=== PATIENT | female | born 1995 | race Caucasian/White ===

== ENCOUNTER 2021-02-24 15:10 | Outpatient (CLI) | payer OTHER, SELFPAY ==
--- NOTE | ~2021-02-24 | US_ITS ---
EXAMINATION: US pelvic complete w TV DATE: 02/24/2021 15:45 INDICATION: Missing IUD strings Comparison:No prior studies for comparison. TECHNIQUE: Multiple transabdominal and endovaginal sonographic images of the pelvis performed. FINDINGS: The uterus measures 7.5 x 2.8 x 3.5 cm. IUD is identified in the endometrium. The endometri al complex measures 4.5 mm. The right ovary measures 2.5 x 1.6 x 2.2 cm and the left ovary measures 2.5 x 2.2 x 1.9 cm. There ar e small follicles in each ovary. Normal doppler signal in both ovaries. There is no free fluid in the pelvis. There are no abnormal masses seen on either side. IMPRESSION: 1. Unremarkable pelvic ultrasound. IUD in expected position in the endometrium. Reviewed, dictated and finalized at location A.
== END 2021-02-24 15:11 ==
PROVIDERS: Visit Provider Student in an Organized Health Care Education/Training Program
DX: T83.32XA Displacement of intrauterine contraceptive device, initial encounter (principal)
CPT/HCPCS: 76830; 76856

== ENCOUNTER 2022-09-27 12:50 | Outpatient (CLI) | payer OTHER, SELFPAY ==
--- NOTE | ~2022-09-27 | US_ITS ---
EXAMINATION: US pelvic complete w TV DATE: 09/27/2022 13:37 INDICATION: Pelvic and perineal pain Comparison:Ultrasound dated 02/24/2021 TECHNIQUE: Multiple transabdominal and endovaginal sonographic images of the pelvis performed. FINDINGS: The uterus measures 6.4 x 2.9 x 3.3 cm. There is an IUD in the endometrium. The endometrial complex measures 5 mm. The right ovary measures 4.1 x 2.2 x 2.7 cm and the left ovary measures 3 x 2.1 x 2.2 cm. There are small follicles in each ovary. Normal doppler signal in both ovaries. There is no free fluid in the pelvis. There are no abnormal masses seen on either side. IMPRESSION: 1. Unremarkable pelvic ultrasound. Reviewed, dictated and finalized at location B.
== END 2022-09-27 12:51 | disposition home or self-care (01) ==
PROVIDERS: Visit Provider Registered Nurse
DX: R10.2 Pelvic and perineal pain (principal)
CPT/HCPCS: 76830; 76856